=== PATIENT | male | born 1985 | race Caucasian/White ===

== ENCOUNTER 2021-05-25 08:45 | Emergency (ER) | payer OTHER ==
[2021-05-25 09:54] LABS: HEMOGLOBIN 14.6 gm/dl (14.0-17.5); RED BLOOD COUNT 4.98 M/UL (4.20-5.50); WHITE BLOOD COUNT 9.2 K/UL (4.5-11.0)
[2021-05-25 10:18] LABS: BUN/CREATININE RATIO 8 (0-10)
== END 2021-05-25 15:50 | disposition short-term general hospital (02) ==
LOC: ER1 08:45
PROVIDERS: Emergency Medicine
DX: F32.9 Major depressive disorder, single episode, unspecified (principal); Z20.822 Contact with and (suspected) exposure to COVID-19; R45.851 Suicidal ideations
CPT/HCPCS: 80053; 80307; 81001; 85025; 99284; G0480; U0002

== ENCOUNTER 2021-06-21 11:17 | Emergency (ER) | payer OTHER ==
[2021-06-21 13:03] LABS: HEMOGLOBIN 14.9 gm/dl (14.0-17.5); RED BLOOD COUNT 4.88 M/UL (4.20-5.50); WHITE BLOOD COUNT 9.8 K/UL (4.5-11.0)
[2021-06-21 13:22] LABS: BUN/CREATININE RATIO 11 (0-10)
== END 2021-06-21 23:35 ==
LOC: ER1 11:17 → M/S 17:25 → ER1 23:35
PROVIDERS: Physician Assistant
DX: R45.851 Suicidal ideations (principal); R44.3 Hallucinations, unspecified; F32.9 Major depressive disorder, single episode, unspecified; F41.9 Anxiety disorder, unspecified; Z20.822 Contact with and (suspected) exposure to COVID-19
CPT/HCPCS: 0240U; 80053; 80307; 85025; 93005; 99285; G0480

== ENCOUNTER 2021-12-05 20:07 | Emergency (ER) | payer OTHER ==
[2021-12-05 21:05] LABS: HEMOGLOBIN 15.1 gm/dl (14.0-17.5); WHITE BLOOD COUNT 12.1 K/UL (4.5-11.0)
[2021-12-05 21:26] LABS: BUN/CREATININE RATIO 11 (0-10)
== END 2021-12-06 02:20 | disposition short-term general hospital (02) ==
LOC: ER1 20:07
PROVIDERS: Emergency Medicine; Physician Assistant Medical
DX: R45.851 Suicidal ideations (principal); R44.0 Auditory hallucinations; R44.1 Visual hallucinations; Z20.822 Contact with and (suspected) exposure to COVID-19
CPT/HCPCS: 80053; 80307; 81001; 85025; 99285; G0480; U0002